=== PATIENT | female | born 1960 | race Caucasian/White ===

== ENCOUNTER 2017-09-20 16:54 | Inpatient (IN) | payer OTHER ==
[~2017-09-20] VITALS: Ht 165.1 cm; Wt 49.9 kg
[2017-09-20 16:59] VITALS: BP 89/54
[2017-09-20] MEDS ORDERED: UNICOMPLEX M TA1 TA1 PO (17:01)
[2017-09-20 17:23] LABS: ABSOLUTE MONOCYTES 0.6 thou/uL (0.0-1.2); ABSOLUTE NEUTROPHILS 5.3 thou/uL (1.6-8.1); BASOPHILS 0.5 %; EOSINOPHILS 0.1 %; HEMATOCRIT 36.8 % (37.0-47.0); HEMOGLOBIN 12.7 gm/dL (12.0-15.0); LYMPHOCYTES 14.4 %; MCH 30.7 pg (26.0-34.0); MCHC 34.5 g/dL (28.0-37.0); MCV 88.8 fL (80.0-100.0); MONOCYTES 9.1 %; MPV 7.7 fl. (7.2-11.1); NUCLEATED RBCS 0 /100WBC; PLATELET COUNT* 173 thou/uL (150-400); POLYS 75.9 %; RBC 4.15 mil/uL (4.20-5.00); RDW-CV 12.8 % (10.5-14.5)
[2017-09-20 17:30] LABS: CALCIUM 8.3 mg/dL (8.5-10.1); POTASSIUM 3.5 mmol/L (3.5-5.1)
[2017-09-20 17:35] LABS: ALBUMIN 3.4 g/dL (3.4-5.0); TOTAL BILIRUBIN 0.3 mg/dL (<0.1-1.0); TOTAL PROTEIN 6.6 g/dL (6.4-8.2)
[2017-09-20 18:52] LABS: INFLUENZA A ANTIGEN None Detected (None Detect); INFLUENZA B ANTIGEN None Detected (None Detect)
[2017-09-20 19:00] VITALS: BP 78/33
[2017-09-20 19:44] VITALS: BP 99/55
[2017-09-21 03:42] VITALS: BP 84/48
[2017-09-21 04:33] LABS: ABSOLUTE LYMPHOCYTES 1.4 thou/uL (0.8-5.3); ABSOLUTE MONOCYTES 0.5 thou/uL (0.0-1.2); ABSOLUTE NEUTROPHILS 2.8 thou/uL (1.6-8.1); BASOPHILS 0.6 %; EOSINOPHILS 0.4 %; HEMATOCRIT 30.3 % (37.0-47.0); LYMPHOCYTES 29.5 %; MCH 30.7 pg (26.0-34.0); MCHC 34.4 g/dL (28.0-37.0); MCV 89.2 fL (80.0-100.0); MONOCYTES 10.1 %; MPV 8.1 fl. (7.2-11.1); NUCLEATED RBCS 0 /100WBC; PLATELET COUNT* 144 thou/uL (150-400); POLYS 59.4 %; RDW-CV 13.2 % (10.5-14.5); WBC 4.8 thou/uL (4.0-11.0)
[2017-09-21 04:42] LABS: CALCIUM 7.1 mg/dL (8.5-10.1); CREATININE 0.7 mg/dL (0.6-1.3); POTASSIUM 3.6 mmol/L (3.5-5.1)
[2017-09-21 05:04] LABS: HEMOGLOBIN 10.4 gm/dL (12.0-15.0)
--- NOTE | 2017-09-21 06:26 | NUR ---
PATIENT SLEPT WELL DURING THIS SHIFT. AT BEDSIDE. PT STATES SHE FEELS MUCH BETTER THIS AM. FLUIDS INFUSING PER DR ORDER. PT UP AD CANDI TO BATHROOM. PT C/O JOINT PAIN AND RECEIVED ONE IBUPROFEN X1. FREQUENTLY USED ITEMS AND CALL LIGHT WITHIN REACH. SIDERAIL UPX2. WILL CONTINUE TO MONITOR.
[2017-09-21 07:29] VITALS: BP 84/48
[2017-09-21 08:20] VITALS: BP 84/48
--- NOTE | 2017-09-21 12:07 | NUR ---
Nutrition: Pt assessed for low BMI 18.3. Wt: 110#. Pt admitted with dyspnea. Feels much better today. Smoker. Takes a MVI. Ate 90% of BKFST this morning. RX, labs noted. Consider low risk at this time.
[2017-09-21] MEDS ORDERED: VENTOLIN HFA INH8 GM INH (13:04)
[2017-09-21] MEDS ORDERED: PREDNISONE 10 M10 MG PO (13:05)
[2017-09-21] MEDS ORDERED: LEVAQUIN 750 M750 MG PO (13:06)
[2017-09-21] MEDS ORDERED: PROTONIX40 M1 PO (13:07)
[2017-09-21 13:08] VITALS: BP 84/48
--- NOTE | 2017-09-21 13:40 | NUR ---
PATIENT IS ALERT AND ORIENTED TODAY VERY PLEASANT, UP AD CANDI IN ROOM, BLOOD PRESSURE SLIGHTLY LOW BUT PATIENT IS ASYMPOTMIC. VITAL SIGNS STABLE OTHERWISE ON ROOM AIR. IV REMOVED FROM RIGHT FORARM. AT BEDSIDE TODAY. PATIENT IS DISCHARGED TO HOME, DISCHARGE INSTRUCTIONS AND PRESCRIPTIONS GIVEN AND QUESTIONS ANSWERED. PATIENT AMBULATED OUT WITH FAMILY.
[2017-09-21 13:44] VITALS: BP 84/48
== END 2017-09-21 13:45 | disposition home or self-care (01) | DRG 177 ==
LOC: M.ERS 16:54 → M.TBA-ER 18:43 → M.3W 18:43
PROVIDERS: Nurse Practitioner Family; ADMIT Internal Medicine
DX: J15.6 Pneumonia due to other Gram-negative bacteria (principal); J96.90 Respiratory failure, unspecified, unspecified whether with hypoxia or hypercapnia; R65.10 Systemic inflammatory response syndrome (SIRS) of non-infectious origin without acute organ dysfunction; F17.210 Nicotine dependence, cigarettes, uncomplicated; B34.9 Viral infection, unspecified